=== PATIENT | female | born 1980 | race Caucasian/White ===

== ENCOUNTER 2017-02-21 09:14 | Inpatient (IN) | payer OTHER ==
[2017-02-21 10:02] LABS: BILIRUBIN NEGATIVE (NEGATIVE); BLOOD NEGATIVE Ery/uL (NEGATIVE); CLARITY CLEAR (CLEAR); COLOR YELLOW (YELLOW); GLUCOSE (U) NORMAL (NORMAL); HGB 13.2 g/dl (12.5-16.0); KETONE (U) NEGATIVE (NEGATIVE); LEUKOCYTES NEGATIVE Leu/uL (NEGATIVE); MCH 29.1 pg (25.0-31.0); MCHC 33.8 g/dL (32.0-36.0); MCV 85.9 fL (78.0-100.0); NITRITE NEGATIVE (NEGATIVE); PROTEIN NEGATIVE (NEGATIVE); RBC 4.54 M/uL (4.20-5.40); RDW 15.3 % (11.5-14.0); UROBILINOGEN 0.2 mg/dL (0.2-1.0); WBC 7.9 K/uL (4.0-10.5)
[2017-02-21 10:51] LABS: ALBUMIN 3.3 g/dL (3.5-5.0); BILIRUBIN - TOTAL 0.3 mg/dL (0.1-1.0); CREATININE 0.6 mg/dL (0.5-1.0); GLOBULIN (CALCULATION) 2.9 g/dL (2.2-4.2); TOTAL PROTEIN 6.2 g/dL (6.4-8.3); URIC ACID 6.1 mg/dL (2.4-5.7)
[2017-02-21 10:58] LABS: AMPHETAMINES NEGATIVE (NEGATIVE); BARBITURATES NEGATIVE (NEGATIVE); BENZODIAZEPINES NEGATIVE (NEGATIVE); COCAINE NEGATIVE (NEGATIVE); MARIJUANA (THC) NEGATIVE (NEGATIVE); METHADONE NEGATIVE (NEGATIVE); TRICYCLIC ANTIDEPRESSANT NEGATIVE (NEGATIVE)
[2017-02-21 19:55] LABS: BILIRUBIN NEGATIVE (NEGATIVE); BLOOD NEGATIVE Ery/uL (NEGATIVE); CLARITY CLEAR (CLEAR); COLOR YELLOW (YELLOW); GLUCOSE (U) NORMAL (NORMAL); KETONE (U) 2+ (MODERATE) mg/dL (NEGATIVE); LEUKOCYTES NEGATIVE Leu/uL (NEGATIVE); NITRITE NEGATIVE (NEGATIVE); PROTEIN NEGATIVE (NEGATIVE); UROBILINOGEN 0.2 mg/dL (0.2-1.0); pH 7.5 (5.0-9.0)
[2017-02-22 06:50] LABS: HCT 36.1 % (37.0-47.0); HGB 11.9 g/dl (12.5-16.0); MCH 28.7 pg (25.0-31.0); MCV 87.2 fL (78.0-100.0); RBC 4.14 M/uL (4.20-5.40); RDW 15.4 % (11.5-14.0); WBC 11.4 K/uL (4.0-10.5)
[2017-02-22 07:14] LABS: ALBUMIN 2.6 g/dL (3.5-5.0); BILIRUBIN - TOTAL 0.3 mg/dL (0.1-1.0); CREATININE 0.7 mg/dL (0.5-1.0); GLOBULIN (CALCULATION) 2.6 g/dL (2.2-4.2); POTASSIUM 4.1 mmol/L (3.5-5.1); TOTAL PROTEIN 5.2 g/dL (6.4-8.3)
== END 2017-02-24 10:36 | disposition home or self-care (01) | DRG 766 ==
LOC: FOB 09:14 → FOD 09:14 → FOB 09:15 → FOD 10:19 → FOB 10:20
PROVIDERS: ADMIT Obstetrics & Gynecology
PROC: 3E0234Z Introduction of Serum, Toxoid and Vaccine into Muscle, Percutaneous Approach (ICD-10-PCS; principal; 2017-02-24)
PROC: 10D00Z1 Extraction of Products of Conception, Low, Open Approach (ICD-10-PCS; 2017-02-24)
DX: O14.14 Severe pre-eclampsia complicating childbirth (principal); F41.8 Other specified anxiety disorders; O34.211 Maternal care for low transverse scar from previous cesarean delivery; N85.8 Other specified noninflammatory disorders of uterus; Z3A.38 38 weeks gestation of pregnancy; Z37.0 Single live birth; O32.1XX0 Maternal care for breech presentation, not applicable or unspecified; O09.523 Supervision of elderly multigravida, third trimester; Z23 Encounter for immunization
CPT/HCPCS: 36415; 80053; 80305; 81003; 83615; 84550; 88307; J0610; J0690; J1885; J2405; J3010